=== PATIENT | male | born 1990 | race Caucasian/White ===

== ENCOUNTER 2019-07-16 19:58 | Inpatient (IN) ==
[2019-07-16] MEDS ORDERED: HYDROmorphone 2 MG/1 ML VIAL IV STA (22:46)
[2019-07-16] MEDS ORDERED: AMPICILLIN/SULBACTAM 3,000 MG in SODIUM CHLORIDE 0.9% 100 ML IV STA (22:46)
[2019-07-16] MEDS ORDERED: ONDANSETRON 4 MG/2 ML VIAL IV STA (22:46)
[2019-07-16] MEDS ORDERED: DIPH/TET/ACEL PERT BOOSTER VACCINE 0.5 ML VIAL IM ONE (22:47)
[2019-07-16] MEDS: SODIUM CHLORIDE 0.9% 1,000 ML IV SCH (23:21)
[2019-07-16 23:26] LABS: Basophils # 0.1 10*3/uL (0.0-0.2); Basophils % 0.7 % (0.0-0.8); Eosinophils # 0.2 10*3/uL (0.0-0.87); Eosinophils % 1.9 % (0.00-10.9); Hematocrit 45.1 VOL% (42.0-52.0); Hemoglobin 15.7 GM/DL (14.0-18.0); Immature Granulocytes % 0.8 %; Immature Granulocytes Absolute 0.07 #; Lymphocytes # 1.9 10*3/uL (1.4-4.0); Mean Corpuscular HGB Conc 34.8 GM/DL (32-36); Mean Corpuscular Volume 93.4 FL (87-102); Mean Platelet Volume 9.1 FL (9.6-12.0); Monocytes % 10.7 % (1.7-12.7); Neutrophils % 64.9 % (38.7-73.9); Platelet Count 181 T/CUMM (130-400); Red Blood Count 4.83 MC/CUMM (3.8-5.5); Red Cell Distribution Width 11.8 % (9.3-17.3); White Blood Count 8.9 T/CUMM (4-12)
[2019-07-16 23:42] LABS: Albumin 3.7 G/DL (3.4-5.0); Bilirubin,Total 0.9 MG/DL (0.2-1.0); Calcium 9.1 MG/DL (8.5-10.1); Osmolality,Calculated 278.3 MOS/KG (273-304); Total Protein 7.7 G/DL (6.4-8.3)
[2019-07-17] MEDS ORDERED: ONDANSETRON 4 MG/2 ML VIAL IV PRN (00:46)
[2019-07-17] MEDS ORDERED: HYDROmorphone 2 MG/1 ML VIAL IV PRN ×2 (00:46→09:18)
[2019-07-17] MEDS ORDERED: ACETAMINOPHEN 325 MG TABLET PO PRN (00:46)
[2019-07-17 05:09] LABS: Basophils # 0.1 10*3/uL (0.0-0.2); Basophils % 0.8 % (0.0-0.8); Eosinophils # 0.2 10*3/uL (0.0-0.87); Eosinophils % 1.9 % (0.00-10.9); Hematocrit 41.1 VOL% (42.0-52.0); Immature Granulocytes % 0.5 %; Immature Granulocytes Absolute 0.04 #; Lymphocytes # 2.1 10*3/uL (1.4-4.0); Lymphocytes % 24.9 % (21.2-54.2); Mean Corpuscular HGB Conc 34.1 GM/DL (32-36); Mean Corpuscular Volume 93.6 FL (87-102); Mean Platelet Volume 9.3 FL (9.6-12.0); Monocytes % 10.3 % (1.7-12.7); Neutrophils % 61.6 % (38.7-73.9); Platelet Count 179 T/CUMM (130-400); Red Blood Count 4.39 MC/CUMM (3.8-5.5); Red Cell Distribution Width 11.8 % (9.3-17.3); White Blood Count 8.4 T/CUMM (4-12)
[2019-07-17 05:39] LABS: Albumin 3.2 G/DL (3.4-5.0); Bilirubin,Total 1.2 MG/DL (0.2-1.0); Calcium 8.8 MG/DL (8.5-10.1); Total Protein 6.7 G/DL (6.4-8.3)
[2019-07-17] MEDS: AMPICILLIN/SULBACTAM 3,000 MG in SODIUM CHLORIDE 0.9% 100 ML IV SCH ×4 (05:46→23:34)
[2019-07-17] MEDS: SODIUM CHLORIDE 0.9% 1,000 ML IV SCH ×3 (06:02→23:34)
[2019-07-17] MEDS: PANTOPRAZOLE 40 MG TABLET PO SCH (11:28)
[2019-07-18 04:40] LABS: Basophils # 0.1 10*3/uL (0.0-0.2); Basophils % 0.7 % (0.0-0.8); Eosinophils # 0.2 10*3/uL (0.0-0.87); Eosinophils % 2.4 % (0.00-10.9); Hematocrit 42.5 VOL% (42.0-52.0); Hemoglobin 14.8 GM/DL (14.0-18.0); Immature Granulocytes % 0.8 %; Immature Granulocytes Absolute 0.06 #; Lymphocytes # 2.1 10*3/uL (1.4-4.0); Lymphocytes % 29.4 % (21.2-54.2); Mean Corpuscular HGB Conc 34.8 GM/DL (32-36); Mean Corpuscular Volume 93.2 FL (87-102); Monocytes % 9.2 % (1.7-12.7); Neutrophils % 57.5 % (38.7-73.9); Platelet Count 192 T/CUMM (130-400); Red Blood Count 4.56 MC/CUMM (3.8-5.5); Red Cell Distribution Width 11.7 % (9.3-17.3); White Blood Count 7.2 T/CUMM (4-12)
[2019-07-18 05:16] LABS: Albumin 3.3 G/DL (3.4-5.0); Bilirubin,Total 0.8 MG/DL (0.2-1.0); Calcium 8.9 MG/DL (8.5-10.1); Osmolality,Calculated 281.1 MOS/KG (273-304); Total Protein 6.8 G/DL (6.4-8.3)
[2019-07-18] MEDS: AMPICILLIN/SULBACTAM 3,000 MG in SODIUM CHLORIDE 0.9% 100 ML IV SCH (05:23)
[2019-07-18] MEDS: SODIUM CHLORIDE 0.9% 1,000 ML IV SCH (06:59)
[2019-07-18] MEDS ORDERED: BUPIVACAINE MPF 0.25% 30 ML VIAL ONE (07:07)
[2019-07-18] MEDS ORDERED: LIDOCAINE 1%/EPI INJ 20 ML VIAL ONE (07:07)
[2019-07-18] MEDS ORDERED: PROPOFOL 200 MG/20 ML VIAL IV ONE (08:13)
[2019-07-18] MEDS ORDERED: MIDAZOLAM 2 MG/2 ML VIAL ONE (08:14)
[2019-07-18] MEDS ORDERED: LIDOCAINE 2% 5 ML VIAL ONE (08:14)
[2019-07-18] MEDS ORDERED: fentaNYL 100 MCG/2 ML VIAL ONE (08:14)
[2019-07-18] MEDS ORDERED: SEVOFLURANE 1 UNIT/15 MINUTE INH ONE (08:14)
[2019-07-18] MEDS ORDERED: ONDANSETRON 4 MG/2 ML VIAL ONE (08:14)
[2019-07-18] MEDS: ASPIRIN EC 81 MG TABLET PO SCH ×2 (10:05→10:06)
[2019-07-18] MEDS: PANTOPRAZOLE 40 MG TABLET PO SCH (10:06)
[2019-07-18 12:05] VITALS: BP 101/73
== END 2019-07-18 11:50 | disposition home or self-care (01) | DRG 935 ==
LOC: N.ED 19:58 → N.EDINP 23:04 → N.3E 07-17 00:09
PROVIDERS: ADMIT Surgery; ATTEND Surgery